=== PATIENT | male | born 1990 | race Caucasian/White ===

== ENCOUNTER 2021-07-28 19:59 | Emergency (ER) | payer OTHER ==
[~2021-07-28] VITALS: Ht 188 cm; Wt 130.2 kg
[2021-07-28 20:01] VITALS: BP 153/89
[2021-07-28] MEDS ORDERED: ACETAMINOPHEN EXTRA STRENGTH 500 MG TAB ONE (20:07)
--- NOTE | 2021-07-28 20:09 | NUR ---
Temp 100.3 given Tylenol 1000 mg PO stat as protocol
[2021-07-28] MEDS ORDERED: ACETAMINOPHEN EXTRA STRENGTH 500 MG TAB PO ONE (20:20)
--- NOTE | 2021-07-28 21:06 | NUR ---
Patient ambulated to bed 5.
--- NOTE | 2021-07-28 21:19 | NUR ---
30 YO M BIBS W C/O OF FEVER X 2 DAYS. HIGHEST TEMP 104 YESTERDAY. NO OTHER FLU SYMPTOMS. STATED HE HAS FREQUENCY IN URINATION WELL. NO PAIN DURING URINATION. PMH: DENIES NKDA
[2021-07-28] MEDS ORDERED: KETOROLAC 30 MG/ML VIAL IM ONE (21:55)
--- NOTE | 2021-07-28 22:23 | NUR ---
covid and flu swabs taken to lab
--- NOTE | 2021-07-28 22:39 | NUR ---
TEMP 100.1 ORAL
[2021-07-29 00:13] VITALS: BP 153/89
--- NOTE | 2021-07-29 00:14 | NUR ---
Patient discharged with v/s stable. Written and verbal after care instructions given and explained. Patient verbalized understanding. Ambulatory with steady gait. All questions addressed prior to discharge. Advised to follow up with PMD.
== END 2021-07-29 00:10 | disposition home or self-care (01) ==
LOC: MED 19:59
DX: U07.1 COVID-19 (principal)
CPT/HCPCS: 81002; 87426; 87804; 96372; 99283; J1885

== ENCOUNTER 2022-05-26 23:13 | Emergency (ER) | payer OTHER ==
[~2022-05-26] VITALS: Ht 188 cm; Wt 115.7 kg
[2022-05-26 23:23] VITALS: BP 136/81
--- NOTE | 2022-05-27 03:37 | NUR ---
PATIENT LEFT WITHOUT BEING SEEN BY DR. Felipe. NO FURTHER CARE PROVIDED FOR PATIENT.
--- NOTE | 2022-05-27 03:39 | NUR ---
PT CALLED FROM [facility] AT 03:37, NO RESPONSE. LWBS.
== END 2022-05-27 03:37 | disposition left against medical advice (07) ==
LOC: MED 23:13
DX: R19.7 Diarrhea, unspecified (principal); Z53.21 Procedure and treatment not carried out due to patient leaving prior to being seen by health care provider
CPT/HCPCS: 99281